=== PATIENT | female | born 1990 | race Caucasian/White ===

== ENCOUNTER → 2022-02-15 | Day surgery (SDC) | payer OTHER ==
[~2022-02-15] MED LIST: Acetaminophen 500 MG TAB ONE; Acetaminophen 500 MG TAB PO SCH; Iron Sucrose Complex 500 MG in Sodium Chloride 0.9% 250 ML 250 ML IVPB SCH; diphenhydrAMINE 25 MG CAP ONE
== END ==
LOC: CSHSDC/OP 13:01
PROVIDERS: ATTEND Family Medicine
DX: O99.019 Anemia complicating pregnancy, unspecified trimester (principal); D64.9 Anemia, unspecified
CPT/HCPCS: J1756; J7050

== ENCOUNTER 2022-04-16 03:46 | Day surgery (SDC) | payer OTHER ==
[2022-04-16 04:28] VITALS: BMI 22.2
[2022-04-16] MEDS ORDERED: hydrALAZINE 20 MG/ML VIAL SLOW IVP PRN (04:35)
[2022-04-16 04:57] LABS: #Eosinphils 0.1 10x3/uL (0.0-0.5); #Neutrophils 6.2 10x3/uL (1.5-8.4); %Basophils 0.4 % (0.0-2.0); %Eosinophils 1.4 % (0.0-6.0); %Lymphocytes 24.4 % (18.0-47.0); %Neutrophils 62.7 % (40.0-75.0); Hemoglobin 11.7 g/dL (12.0-15.5); Mean Corpuscular HGB CONC 34.2 g/dL (32.0-36.0); Mean Corpuscular Hemoglobin 28.8 pg (27.0-33.0); Mean Corpuscular Volume 84.2 fl (81.6-98.3); Mean Platelet Volume 11.2 fl (7.4-10.4); Platelet Count 349 10x3/uL (150-450); RBC Distribution Width 14.6 % (11.5-14.5); Red Blood Cell (RBC) Count 4.06 10x6/uL (3.90-5.03); White Blood Cell (WBC) Count 9.8 10x3/uL (3.5-10.5)
[2022-04-16 04:59] LABS: Bilirubin Neg (Negative); Blood, Urine 250 (Negative); Clarity Cloudy (Clear); Glucose, Urine (Dipstick) Normal (Negative); Ketone, Urine Negative (Negative); Leukocyte 500 (Negative); Nitrite Positive (Negative); Protein, Urine (Dipstick) 30 mg/dl (Neg-Trace); Urobilinogen Normal mg/dL (Less than 2)
[2022-04-16 05:06] LABS: Amphetamine Detected (NotDetected); Barbiturates Screen Not Detected (NotDetected); Benzodiazepine Screen Not Detected (NotDetected); Cocaine Metabolite Screen Not Detected (NotDetected); Methadone Not Detected (NotDetected); Methamphetamine Detected (NotDetected); Opiate Screen Not Detected (NotDetected); Oxycodone Screen Not Detected (NotDetected); Phencyclidine (PCP) Not Detected (NotDetected); THC/Cannabinoid Screen Detected (NotDetected); Tricyclic Screen Not Detected (NotDetected)
[2022-04-16 05:14] LABS: Bacteria/HPF 2+ HPF (None Seen); CAUTI Indications for Culture Pregnancy; RBC/HPF 0-3 HPF (0-3); Squamous Epithelial 0-3 HPF (0-3); WBC/HPF 21-50 HPF (0-3)
[2022-04-16 05:15] LABS: Urine Culture Reflex Yes Yes
[2022-04-16 05:18] LABS: ALT (SGPT) 37 U/L (8-55); AST (SGOT) 35 U/L (5-34); Albumin 3.4 g/dL (3.5-5.0); Alkaline Phosphatase 316 U/L (40-110); Anion Gap 15 mmol/L (10-20); BUN (Urea Nitrogen) 9 mg/dL (7.0-18.7); Bilirubin, Total 0.3 mg/dL (0.2-1.2); Calc. Creatinine Clearance 112 mL/min (70-130); Calcium 9.4 mg/dL (7.8-10.44); Carbon Dioxide 20 mmol/L (22-29); Chloride 106 mmol/L (98-107); Estimated GFR 116; Globulin 3.8 g/dL (2.4-3.5); Glucose 83 mg/dL (70-105); Potassium 4.4 mmol/L (3.5-5.1); Protein, Total 7.2 g/dL (6.0-8.3); Sodium 137 mmol/L (136-145)
[2022-04-16 05:23] LABS: Creatinine, Urine 80.72 mg/dL (47-110)
[2022-04-16] MEDS ORDERED: Ferrous Sulfate 325 MG TAB PO SCH (09:00)
[2022-04-16] MEDS ORDERED: Morphine 4 MG/ML VIAL ONE (09:45)
[2022-04-16] MEDS ORDERED: diphenhydrAMINE 50 MG/ML VIAL ONE (09:45)
[2022-04-16] MEDS ORDERED: diphenhydrAMINE 50 MG/ML VIAL IVP SCH (10:00)
[2022-04-16] MEDS ORDERED: Morphine 4 MG/ML VIAL SLOW IVP SCH (10:00)
[2022-04-16] MEDS ORDERED: Azithromycin 250 MG TAB PO SCH (12:00)
[2022-04-16] MEDS ORDERED: metroNIDAZOLE 500 MG TAB PO SCH ×2 (12:00→21:00)
[2022-04-16] MEDS ORDERED: cefTRIAXone\\ROCEPHIN 1 GM in Sodium Chloride 0.9% 100 ML IVPB SCH (12:00)
[2022-04-17] MEDS ORDERED: Ferrous Sulfate 325 MG TAB PO SCH (09:00)
[2022-04-17] MEDS ORDERED: Prenatal Vitamin 1 TAB PO SCH (09:00)
[2022-04-17 21:48] LABS: Chlamydia by PCR Not Detected (NotDetected); GC by PCR Not Detected (NotDetected)
[2022-04-18 21:47] LABS: Group B Streptococcus by PCR Not Detected (NotDetected)
== END 2022-04-16 16:45 | disposition home or self-care (01) ==
LOC: CSHLAB 03:46 → UNDOADMIN 04:01 → CSHLD 04:01 → CSHLD/OP 16:45
PROVIDERS: ATTEND Student in an Organized Health Care Education/Training Program
DX: O46.93 Antepartum hemorrhage, unspecified, third trimester (principal); O47.03 False labor before 37 completed weeks of gestation, third trimester; O99.333 Smoking (tobacco) complicating pregnancy, third trimester; F17.290 Nicotine dependence, other tobacco product, uncomplicated; O99.013 Anemia complicating pregnancy, third trimester; D64.9 Anemia, unspecified; O13.3 Gestational [pregnancy-induced] hypertension without significant proteinuria, third trimester; O9A.213 Injury, poisoning and certain other consequences of external causes complicating pregnancy, third trimester; T19.2XXA Foreign body in vulva and vagina, initial encounter; O23.43 Unspecified infection of urinary tract in pregnancy, third trimester; N39.0 Urinary tract infection, site not specified; Z79.899 Other long term (current) drug therapy; Z88.8 Allergy status to other drugs, medicaments and biological substances; Z3A.36 36 weeks gestation of pregnancy
CPT/HCPCS: 36415; 72170; 80053; 80306; 81001; 82570; 84156; 84550; 85025; 87070; 87077; 87086; 87186; 87205; 87480; 87491; 87510; 87591; 87653; 87660; 96360; 96361; 96365; 96375; 99285; J0696; J1200; J2270; J3490

== ENCOUNTER 2022-04-25 20:29 | Inpatient (IN) | payer OTHER ==
[~2022-04-25 20:29] MED LIST changes: -Acetaminophen 500 MG TAB ONE; -Acetaminophen 500 MG TAB PO SCH; +Bupivacaine 0.25% HCL 30 ML VIAL ONE; -Iron Sucrose Complex 500 MG in Sodium Chloride 0.9% 250 ML 250 ML IVPB SCH; -diphenhydrAMINE 25 MG CAP ONE
[2022-04-25] MEDS ORDERED: Ibuprofen 800 MG TAB PO PRN (20:51)
[2022-04-25] MEDS ORDERED: Acetaminophen 500 MG TAB PO PRN (20:51)
[2022-04-25] MEDS ORDERED: Methylergonovine 0.2 MG/ML VIAL IM PRN (20:51)
[2022-04-25] MEDS ORDERED: Lidocaine 1% (PF) 30 ML VIAL SC PRN (20:51)
[2022-04-25] MEDS ORDERED: Promethazine HCl 25 MG/ML VIAL IM PRN ×3 (20:51→23:34)
[2022-04-25] MEDS ORDERED: Ondansetron PF 4 MG/2 ML Vial IVP PRN ×3 (20:51→23:34)
[2022-04-25] MEDS ORDERED: Misoprostol 200 MCG TAB PR PRN (20:51)
[2022-04-25] MEDS ORDERED: hydrALAZINE 20 MG/ML VIAL SLOW IVP PRN (20:51)
[2022-04-25] MEDS ORDERED: Carboprost 250 MCG/ML AMP IM PRN (20:51)
[2022-04-25] MEDS ORDERED: Tranexamic Acid 1,000 MG in Sodium Chloride 0.9% 250 ML 250 ML IVPB PRN (20:51)
[2022-04-25] MEDS ORDERED: NS w/ Oxytocin 30 units 500 ML IV SCH (21:00)
[2022-04-25] MEDS ORDERED: Fentanyl 2 mcg/Bup 0.1% Cadd 100 ML ONE (21:05)
[2022-04-25 21:07] LABS: Hemoglobin 12.1 g/dL (12.0-15.5); Mean Corpuscular Hemoglobin 27.8 pg (27.0-33.0); Mean Corpuscular Volume 84.4 fl (81.6-98.3); Mean Platelet Volume 11.2 fl (7.4-10.4); Platelet Count 380 10x3/uL (150-450); RBC Distribution Width 15.1 % (11.5-14.5); Red Blood Cell (RBC) Count 4.35 10x6/uL (3.90-5.03); White Blood Cell (WBC) Count 16.8 10x3/uL (3.5-10.5)
[2022-04-25] MEDS ORDERED: Fentanyl 100 MCG/2 ML VIAL ONE (21:23)
[2022-04-25] MEDS ORDERED: Bupivacaine 0.75% W/DEXTROSE 8.25% 2 ML AMP ONE (21:24)
[2022-04-25 21:44] VITALS: BMI 23.7
[2022-04-25] MEDS ORDERED: ePHEDrine Sulfate 50 MG/10 ML VIAL SLOW IVP PRN ×2 (22:08→23:34)
[2022-04-25] MEDS ORDERED: Acetaminophen 325 MG TAB PO PRN ×2 (22:08→23:34)
[2022-04-25] MEDS ORDERED: Lactated Ringer's 500 ML IV PRN ×2 (22:08→23:34)
[2022-04-25] MEDS ORDERED: Naloxone HCl 0.4 mg/ml Vial IVP PRN ×4 (22:08→23:34)
[2022-04-25] MEDS ORDERED: Moisturizing Cream (Eucerin) 113 GM JAR TOP PRN ×2 (22:08→23:34)
[2022-04-25] MEDS ORDERED: diphenhydrAMINE 50 MG/ML VIAL IVP PRN ×2 (22:08→23:34)
[2022-04-25 22:12] LABS: HBSAg Index 0.14 S/CO (0-0.99); Hep B Surf Ag Non-Reactive S/CO (NonReactive)
[2022-04-25 22:13] LABS: SARS-CoV-2 NAA Rapid Test Not Detected (NotDetected)
[2022-04-25 22:13] LABS: Syphilis Antibody Nonreactive (Nonreactive); Syphilis Antibody Index 0.15 S/CO (<1.00 Non-Reactive)
[2022-04-25] MEDS ORDERED: Communication Order-Pharmacy FS SCH ×2 (22:15→23:45)
[2022-04-25] MEDS ORDERED: Fentanyl 2 mcg/Bupivacaine 0.1% Cassette 100 ML EPIDURAL SCH (22:15)
[2022-04-25 23:01] LABS: Amphetamine Not Detected (NotDetected); Barbiturates Screen Not Detected (NotDetected); Benzodiazepine Screen Not Detected (NotDetected); Cocaine Metabolite Screen Not Detected (NotDetected); Methadone Not Detected (NotDetected); Methamphetamine Detected (NotDetected); Opiate Screen Not Detected (NotDetected); Oxycodone Screen Not Detected (NotDetected); Phencyclidine (PCP) Not Detected (NotDetected); THC/Cannabinoid Screen Detected (NotDetected); Tricyclic Screen Not Detected (NotDetected)
[2022-04-26] MEDS ORDERED: Benzocaine-Menthol 82.5 ML CAN TOP PRN (05:59)
[2022-04-26] MEDS ORDERED: Lanolin Ointment 7 GM TUBE TOP PRN (05:59)
[2022-04-26] MEDS ORDERED: Boostrix 0.5 ML (Tdap) VIAL (>/=7 yrs of age) IM ONE (05:59)
[2022-04-26] MEDS ORDERED: Milk Of Magnesia 30 ML UDCUP PO PRN (05:59)
[2022-04-26] MEDS ORDERED: Bisacodyl 10 MG SUPP PR PRN (05:59)
[2022-04-26] MEDS: Ibuprofen 800 MG TAB PO SCH ×3 (06:05→21:45)
[2022-04-26] MEDS: Ferrous Sulfate 325 MG TAB PO SCH ×2 (09:26→18:31)
[2022-04-26] MEDS: Prenatal Vitamin 1 TAB PO SCH (10:04)
[2022-04-26] MEDS: Docusate 100 MG CAP PO SCH ×2 (10:04→21:45)
[2022-04-27 04:13] LABS: #Basophils 0.1 10x3/uL (0.0-0.2); #Eosinphils 0.2 10x3/uL (0.0-0.5); #Monocytes 1.3 10x3/uL (0.0-1.1); #Neutrophils 11.1 10x3/uL (1.5-8.4); %Basophils 0.4 % (0.0-2.0); %Eosinophils 1.3 % (0.0-6.0); %Lymphocytes 17.9 % (18.0-47.0); %Monocytes 8.2 % (0.0-10.0); %Neutrophils 70.7 % (40.0-75.0); Hemoglobin 10.9 g/dL (12.0-15.5); Mean Corpuscular HGB CONC 32.6 g/dL (32.0-36.0); Mean Corpuscular Hemoglobin 27.9 pg (27.0-33.0); Mean Corpuscular Volume 85.6 fl (81.6-98.3); Mean Platelet Volume 10.8 fl (7.4-10.4); Platelet Count 377 10x3/uL (150-450); RBC Distribution Width 15.4 % (11.5-14.5); White Blood Cell (WBC) Count 15.7 10x3/uL (3.5-10.5)
[2022-04-27] MEDS: Ibuprofen 800 MG TAB PO SCH ×2 (05:34→14:13)
[2022-04-27 07:49] VITALS: BP 128/85; TEMP 97.6
[2022-04-27] MEDS: Prenatal Vitamin 1 TAB PO SCH (08:49)
[2022-04-27] MEDS: Docusate 100 MG CAP PO SCH (08:49)
[2022-04-27] MEDS: Ferrous Sulfate 325 MG TAB PO SCH ×2 (08:50→16:33)
== END 2022-04-27 17:00 | disposition home or self-care (01) | DRG 806 ==
LOC: CSHLD/OP 20:29 → CSHLD 20:43 → CSHPP 04-26 05:32
PROVIDERS: ADMIT Student in an Organized Health Care Education/Training Program; ATTEND Student in an Organized Health Care Education/Training Program
PROC: 10E0XZZ Delivery of Products of Conception, External Approach (ICD-10-PCS; principal; 2022-04-26)
DX: O99.02 Anemia complicating childbirth (principal); O99.324 Drug use complicating childbirth; Z37.0 Single live birth; D64.9 Anemia, unspecified; O99.334 Smoking (tobacco) complicating childbirth; F17.210 Nicotine dependence, cigarettes, uncomplicated; F15.90 Other stimulant use, unspecified, uncomplicated; O99.344 Other mental disorders complicating childbirth; Z3A.38 38 weeks gestation of pregnancy; F41.9 Anxiety disorder, unspecified; F31.9 Bipolar disorder, unspecified; F98.8 Other specified behavioral and emotional disorders with onset usually occurring in childhood and adolescence; F42.9 Obsessive-compulsive disorder, unspecified; F43.10 Post-traumatic stress disorder, unspecified; Z79.899 Other long term (current) drug therapy; Z88.8 Allergy status to other drugs, medicaments and biological substances; Z20.822 Contact with and (suspected) exposure to COVID-19; O71.82 Other specified trauma to perineum and vulva
CPT/HCPCS: 36415; 51702; 80306; 85025; 85027; 86780; 86850; 86900; 86901; 87340; 99285; J3010; J3490; S0020; U0002